=== PATIENT | female | born 1985 | race Caucasian/White ===

== ENCOUNTER 2025-02-17 05:01 | Emergency (ER) | payer OTHER, SELFPAY ==
[2025-02-17 05:04] VITALS: BP 152/101
--- NOTE | 2025-02-17 06:18 | ED.GENMED ---
History of Present Illness
General
Chief Complaint: Abdominal Pain
Source: patient
Exam Limitations: none
Time Seen by Provider: 02/17/25 06:05
Nursing documentation reviewed up to this point in time: agreed with
History of Present Illness
History of Present Illness:
Note:
CHIEF COMPLAINT(S)
Abdominal pain, bloating, and diarrhea.
HISTORY OF PRESENT ILLNESS
The patient is a 39-year-old female presenting with progressively worsening abdominal pain, bloating, and diarrhea. She reported that these symptoms initially seemed consistent with menstrual discomfort but have escalated beyond her typical
experience. The discomfort is notably pronounced on the right side in the area near the liver. She denies vomiting. The patient described the bloating as feeling 'especially bloated,' emphasizing discomfort predominantly on the right side. She has
been experiencing diarrhea but has not been able to provide a stool sample yet. The patient consumes alcohol very rarely.
PAST MEDICAL AND SURGICAL HISTORY
The patient has celiac disease and hypothyroidism
CHRONIC MEDICAL CONDITIONS SIGNIFICANTLY AFFECTING CARE
Celiac disease.
REVIEW OF SYSTEMS
- Gastrointestinal: Abdominal pain, bloating, diarrhea.
- Constitutional: No vomiting reported.
PHYSICAL EXAM
General: Alert, no acute distress.
Skin: Warm, dry.
Head: Normocephalic, atraumatic.
Neck: Supple, trachea midline.
Eye, Ears, Nose, Mouth, and Throat: Oral mucosa moist.
Cardiovascular: Normal peripheral perfusion, no edema.
Respiratory: Respirations are non-labored.
Gastrointestinal: Abdomen nondistended. no rebound or guarding
Back: Normal range of motion, normal alignment.
Musculoskeletal: Normal range of motion, normal strength.
Neurological: Alert and oriented to person, place, time, and situation, no focal neurological deficit observed.
Psychiatric: Cooperative, appropriate mood and affect.
PROBLEM LIST
Acute Problems:
- Abdominal pain
- Bloating
- Diarrhea
Chronic Problems:
- Celiac disease
PLAN
Evaluation for potential gastroenteritis and less likely other gastrointestinal causes such as appendicitis or gallstones. Plan to obtain a stool sample when available for further analysis.
DIFFERENTIAL DIAGNOSIS
The Differential Diagnosis includes, in no particular order and is not limited to:
- Gastroenteritis
- Celiac disease exacerbation
- Gallstones
- Appendicitis
- Irritable bowel syndrome
- Inflammatory bowel disease
- Peptic ulcer disease
- Hepatitis
- Diverticulitis
- Pancreatitis
SUMMARY OF ENCOUNTER
The patient was seen in the emergency department for abdominal pain, bloating, and diarrhea. During the visit, the patient received intravenous fluids, ondansetron (Zofran), and pantoprazole (Protonix) to manage her symptoms. An ultrasound and lab
tests were performed; no acute findings were noted. The patient responded well to the treatment and was stable upon reevaluation.
DISPOSITION
Discharge.
PLAN
The patient is instructed to follow up with her primary care physician and gastroenterology for further evaluation and management of her symptoms.
MEDICATION RECONCILIATION
1. Intravenous ondansetron (Zofran) was administered.
2. Intravenous pantoprazole (Protonix) was administered.
MEDICAL DECISION MAKING
1. Number and Complexity of Problems Addressed: Chronic conditions affecting care include celiac disease. Differential Diagnosis: Gastroenteritis, celiac disease exacerbation, gallstones, appendicitis, irritable bowel syndrome, inflammatory bowel
disease, peptic ulcer disease, hepatitis, diverticulitis, pancreatitis.
2. Data:
- Category 1: An ultrasound and lab tests were ordered and reviewed.
- Category 3: Consideration of Admission/Observation: Escalation of care including admission/observation was considered given the complexity and risk of the patients presenting complaint. However, the patient was deemed safe for outpatient
management with close follow-up due to stable vitals, well-controlled symptoms, and reassurance from work-up findings.
DIAGNOSIS
1. Abdominal pain, unspecified (R10.9)
2. Diarrhea, unspecified (R19.7)
3. Celiac disease (K90.0)
Phy Exam
Physical Exam
Physical Exam:
.
Course
Orders/Labs/Results
Orders:
Orders
02/17/25 06:17
IV Insert/Care/Rem.- Treatment PRN
0.9% Sodium Chloride 1000 ml [Nss] 1,000 ml IV BOLUS
Ondansetron Injectable [Zofran] 4 mg IV NOW STA
02/17/25 06:18
Test Result ONCE
02/17/25 06:34
Basic Metabolic Panel Urgent
Complete Blood Count/With Diff Urgent
HCG, Serum Qualitative Screen Urgent
Lipase Urgent
Magnesium Urgent
STOOL [C difficile Antigen & Toxins] Urgent
LEXI Source: Feces/Stool
Specimen Description:
Date Specimen was Collected: 02/17/25
Time Specimen was Collected: 06:21
Stool Culture Urgent
LEXI Source: Feces/Stool
Specimen Description:
Date Specimen was Collected: 02/17/25
Time Specimen was Collected: 06:21
02/17/25 08:06
Ondansetron Injectable [Zofran] 4 mg IV NOW STA
Pantoprazole [Protonix IV] 40 mg IV NOW STA
02/17/25 08:56
US Abdomen Complete/Upper Urgent
Comment:
Reason For Exam: epigastric pain
02/17/25 08:58
0.9% Sodium Chloride 1000 ml [Nss] 1,000 ml IV BOLUS
Abnormal Lab Results
02/17/25
06:34
Glucose 107 H mg/dl
(70-99)
02/17/25 06:34
02/17/25 06:34
Vital Signs
Initial and Last Documented VS:
Initial Vital Signs
Temp Pulse Resp BP Pulse Ox
98.7 F 89 18 152/101 95
02/17/25 05:04 02/17/25 05:04 02/17/25 05:04 02/17/25 05:04 02/17/25 05:04
Last Documented Vital Signs
Temp Pulse Resp BP Pulse Ox
98.7 F 86 16 153/71 98
02/17/25 05:04 02/17/25 11:17 02/17/25 09:51 02/17/25 11:14 02/17/25 11:15
*Pulse Oximetry
SaO2: 95
Oxygen Mode of Delivery: Room air
Patient hypoxic: no
*Critical Care Note
Total Time (30-74mins, 75-104mins- exclusive of procedures): Not Applicable
ED Attending Note
-
Portions of this chart may have been created with voice recognition software.� Occasional wrong word or��sound alike� substitutions may have occurred due to the inherent limitations of voice recognition software.
Discharge Plan
Departure
Patient Disposition: Home (Routine Discharge)
Date of Disposition: 02/17/25
Time of Disposition: 10:59
Patient with high blood pressure during this ER visit?: Yes
Condition: Good
Discharge Problem:
Nausea, Diarrhea, Abdominal pain
Instructions: Diarrhea in teens and adults, Nausea and Vomiting, Adult (DC), Abdominal Pain, BLOOD PRESSURE
Prescriptions:
New
ondansetron 4 mg tablet,disintegrating
4 mg PO Q8H PRN (Reason: nausea and vomiting) 4 Days Qty: 14 0RF
No Action
fluticasone propion-salmeterol [Advair Diskus] 250-50 mcg/dose Blister With Device
2 inh INHALATION DAILY
valsartan 80 mg Tablet
80 mg PO DAILY
levothyroxine 75 mcg Tablet
75 mcg PO DAILY
amlodipine 10 mg Tablet
10 mg PO DAILY
levalbuterol tartrate 45 mcg/actuation Hfa Aerosol Inhaler
2 inh INHALATION TID PRN (Reason: asthma)
alprazolam [Xanax] 0.5 mg Tablet
0.5 mg PO TID PRN (Reason: anxiety)
spironolactone 25 mg Tablet
25 mg PO DAILY
Trintellix 5 mg Tablet
5 mg PO DAILY
Referrals:
Blair Best MD [Family Provider, Internal Medicine] - Call in 1-3 days for appt
Interventions
Interventions:
*Risk Screen - Suicide Last Done: 02/17/25 05:04
*General Assessment Last Done: 02/17/25 07:00
*Neglect/Abuse Screening Last Done: 02/17/25 05:04
*ED- Fall Risk Assessment Last Done: 02/17/25 05:04
*ED COVID-19 Vaccine History Last Done: 02/17/25 05:04
*Nursing Disposition Last Done: 02/17/25 11:17
[facility] Assessment Last Done: 02/17/25 06:14
Discharge Date and Time
Discharge Date/Time: 02/17/25 11:30
Print Language: FIJIAN
[2025-02-17] MEDS: ZOFRAN 4 MG IV ×2 (06:26→08:10)
[2025-02-17] MEDS: NSS 1000 IV ×2 (06:31→09:01)
[2025-02-17 06:56] VITALS: BP 135/45
[2025-02-17 06:58] VITALS: BMI 60.5
[2025-02-17 07:07] LABS: Hematocrit 38.9 % (37.0-47.0); Hemoglobin 13.0 g/dL (12.0-16.0); Mean Corp Hgb Conc. 33.4 g/dL (33.0-37.0); Mean Corpuscular Volume 84.4 fL (81.0-99.0); Nucleated Red Blood Cells % 0 %; Platelet Count 287 10^3/uL (130-400); Red Cell Dist. Width 14.2 % (11.5-14.5)
[2025-02-17 07:20] LABS: HCG, Serum Qualitative Screen Negative
[2025-02-17 07:23] LABS: Blood Urea Nitrogen 9 mg/dl (7-17); Calcium 8.7 mg/dl (8.4-10.2); Carbon Dioxide 22 mmol/L (22-30); Chloride 105 mmol/L (98-107); Estimated Creatinine Clearance > 125 ml/min; Glucose 107 mg/dl (70-99); Lipase 23 U/L (23-300); Magnesium 1.9 mg/dl (1.6-2.3); Sodium 138 mmol/L (135-145); eGFR > 60.00
[2025-02-17] MEDS: PROTONIX IV 40 MG IV (08:09)
[2025-02-17 09:51] VITALS: BP 131/74
[2025-02-17 11:14] VITALS: BP 153/71
== END 2025-02-17 11:30 | disposition home or self-care (01) ==
LOC: EMR 05:01
PROVIDERS: EMERGENCY PHYSICIAN Emergency Medicine; FAMILY PHYSICIAN Internal Medicine
DX: R19.7 Diarrhea, unspecified (principal); R11.0 Nausea; R10.9 Unspecified abdominal pain; E03.9 Hypothyroidism, unspecified; K90.0 Celiac disease
CPT/HCPCS: 96374; 96375; 96376; 96361; 99284; 76700; 80048; 83690; 83735; 84703; 85025; 87045; 87046; 87324; 87427; 87449